=== PATIENT | male | born 1990 | race American Indian/Alaskan Native ===

== ENCOUNTER 2020-04-04 19:42 | Emergency (ER) | payer OTHER ==
[~2020-04-04] VITALS: Ht 185.4 cm; Wt 108.9 kg
[~2020-04-04 19:42] MED LIST: DOXYCYCLINE HY100 MG PO
== END 2020-04-04 21:25 | disposition home or self-care (01) ==
LOC: ED 19:42
DX: S43.102A Unspecified dislocation of left acromioclavicular joint, initial encounter (principal); S00.03XA Contusion of scalp, initial encounter; S60.512A Abrasion of left hand, initial encounter; S60.511A Abrasion of right hand, initial encounter; Z23 Encounter for immunization; F17.200 Nicotine dependence, unspecified, uncomplicated; V29.9XXA Motorcycle rider (driver) (passenger) injured in unspecified traffic accident, initial encounter
CPT/HCPCS: 70450; 73030; 90471; 90715; 99285-25